=== PATIENT | female | born 1935 | race Two or more races ===

== ENCOUNTER 2021-04-20 19:15 | Emergency (ER) | payer MEDICARE, OTHER ==
[~2021-04-20] VITALS: Ht 152.4 cm; Wt 90.7 kg
--- NOTE | 2021-04-20 19:34 | NUR ---
SHAI FROM PT'S HOME TO ER BED 5. UNRESPONSIVE. ON CPAP UPON ARRIVAL. DOES NOT RESPOND TO STERNAL RUB. UNABLE TP APPRECIATE PULSE DURING ASSESSMENT. MD WAS AT THE BEDSIDE AND CHEST COMPRESSIONS STARTED @ 1914 AND CODE BLUE ACTIVATION.
--- NOTE | 2021-04-20 19:36 | NUR ---
@1914 - CHEST COMPRESSION STARTED W/ MD AT BEDSIDE. PLACED ON CARDIC MONITOR AND CODE BLUE ACTIVATION
--- NOTE | 2021-04-20 19:37 | NUR ---
@ 191 - PULSE CHECK - ASSYSTOLE. EPI 1GM IVP. CONTINUE CPR
--- NOTE | 2021-04-20 19:38 | NUR ---
@1920 - EPINEPHRINE 1 GM IVP (2ND DOSE). ON GOING CPR
--- NOTE | 2021-04-20 19:39 | NUR ---
@ 1920 - PT INTUBATED ET 7.5 22 @ LIP. PULSE CHECK ASSYSTOLE . CONTINUE CPR
--- NOTE | 2021-04-20 19:40 | NUR ---
@1923 - PULSE CHECK - ASSYSTOLE
--- NOTE | 2021-04-20 19:40 | NUR ---
@1922 - EPINEPHRINE 1GM IVP (3RD DOSE)
--- NOTE | 2021-04-20 19:41 | NUR ---
@1924 EPINEPHRINE 1GM IVP AND ON GOING CPR
--- NOTE | 2021-04-20 19:42 | NUR ---
@1925 - PULSE CHECK, NO APPRECIATED PULSE , ASSYSTOLE. CALLED TIME OF
--- NOTE | 2021-04-20 19:56 | NUR ---
[facility] NOT A CORONERS CASE
--- NOTE | 2021-04-20 20:08 | NUR ---
[facility] CALLED AND SPOKE WITH LINDA FOR THE REFERRAL. REFERRAL ID - [id number]
--- NOTE | 2021-04-20 20:20 | NUR ---
RECEIVED A CALL FROM MARIE OF [facility] TO NOTIFY THAT CASE WILL BE CLOSE.
--- NOTE | 2021-04-20 20:58 | NUR ---
STILL HAVENT RECEIVED A CALL NOR ANYBODY FROM PT'S FAMILY CAME. NO PHONE NUMBER ON FILE NOR INFORMATION FROM [facility] WHEN SHE CAME IN.
--- NOTE | 2021-04-20 21:00 | NUR ---
PT WAS MOVED TO MORTUARY.
--- NOTE | 2021-04-20 21:41 | NUR ---
RECEIVED A CALL FROM PT'S DAUGHTER LEROY SANCHES. SHE WAS NOTIFIED AND NOW AWARE THAT HER MOTHER .
--- NOTE | 2021-04-20 21:43 | NUR ---
LEROY SANCHES (DAUGHTER) [phone]
== END 2021-04-20 21:00 ==
LOC: ER 19:16
DX: I46.9 Cardiac arrest, cause unspecified (principal)